=== PATIENT | male | born 1965 | race Caucasian/White ===

== ENCOUNTER 2021-07-04 18:40 | Inpatient (IN) | payer BC, SELFPAY ==
[~2021-07-04] VITALS: Ht 177.8 cm; Wt 127.7 kg
[2021-07-04 18:45] VITALS: BP_SYST 192
--- NOTE | 2021-07-04 18:45 | NUR ---
Patient to ER bed 2 to gown for evaluation. Side rails up. Report given to WILLIAM AMBRIZ.
--- NOTE | 2021-07-04 18:50 | NUR ---
ER at bedside examining patient.
--- NOTE | 2021-07-04 18:55 | NUR ---
PT PRESENTS BIB LACF C/O CP FROM . PT SEEKED TX YESTERDAY FOR SAME COMPLAINT AND LEFT BEFORE EVALUATION .PT RECEIVED NTG X 2 WITH RELIEF AND 324MG ASA.PT H/O DM W/O MEDS AND HTN.
--- NOTE | 2021-07-04 20:18 | NUR ---
Minimal report received on patient. Patient resting in bed; in no acute distress. 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 Patient reported chest pain upon intial arrival with radiation to his left hand. States it has "substantially subsided" since inital arrival, especially after second nitro was administered. Will continue to monitor.
[2021-07-04 20:21] LABS: BASOPHILS % (AUTO) 0.4 % (0.0-2.0); EOSINOPHILS # (AUTO) 0.1 K/uL (0.0-0.4); EOSINOPHILS % (AUTO) 0.7 % (0.0-4.0); HEMOGLOBIN 16.1 g/dL (14.0-18.0); LYMPHOCYTES # (AUTO) 1.7 K/uL (1.0-5.5); LYMPHOCYTES % (AUTO) 19.4 % (20.5-51.5); MEAN CORPUSCULAR HEMOGLOBIN 30 pg (27-31); MEAN CORPUSCULAR HGB CONC 34 % (32-36); MEAN CORPUSCULAR VOLUME 88 fL (79.0-98.0); MONOCYTES # (AUTO) 0.5 K/uL (0.0-1.0); MONOCYTES % (AUTO) 5.8 % (1.7-9.3); NEUTROPHILS # (AUTO) 6.6 K/uL (1.8-7.7); NEUTROPHILS % (AUTO) 73.7 % (40.0-70.0); PLATELET COUNT (AUTO) 282 K/uL (130-430); RED BLOOD CELL COUNT(AUTO) 5.34 MIL/uL (4.2-6.2); RED CELL DISTRIBUTION WIDTH 14.6 % (9.0-15.0)
[2021-07-04 20:38] LABS: CALCIUM 8.6 mg/dL (8.4-11.0); CREATININE 1.28 mg/dL (0.55-1.30); POTASSIUM 4.3 mmol/L (3.5-5.1)
[2021-07-04 20:43] LABS: ALBUMIN 3.9 g/dL (3.4-4.8); TOTAL BILIRUBIN 0.7 mg/dL (0.0-1.0)
--- NOTE | 2021-07-04 21:12 | NUR ---
Patient to be admitted. Currently resting in bed in no acute distress. Will continue to monitor.
--- NOTE | 2021-07-04 21:21 | NUR ---
Patient will be admitted to care of Denzel (Dr Cortez covering). Admitted to tele unit. Will go to room TBD. Belongings list completed. Complete and up to date summary report printed. SBAR report to be given at bedside with opportunity for questions.
[2021-07-04] MEDS ORDERED: LOSA100T3 PO (21:22)
[2021-07-04] MEDS ORDERED: AMLO5TAB4 PO (21:22)
--- NOTE | 2021-07-04 21:22 | NUR ---
Medication reconciliation completed with information provided by patient. Any prior medication reconciliation on file was reviewed and corrected.
[2021-07-04] MEDS: NACL 0.9% 1,000 ML IV SCH (21:24)
--- NOTE | 2021-07-04 21:25 | NUR ---
COVID swab collected at bedside and sent to lab
[2021-07-04] MEDS ORDERED: MORPHINE 2 MG/ML INJ. SYRINGE IVP PRN (21:30)
--- NOTE | 2021-07-04 21:37 | NUR ---
Final belongings list failed to save. Patient also has hat with him at bedside in addition to other clothing.
--- NOTE | 2021-07-04 21:51 | NUR ---
Call placed to Dr Cortez re Heparin admininstration; unable to admininster without aPTT result. Awaiting call back.
--- NOTE | 2021-07-04 22:44 | NUR ---
Still awaiting aPTT results for subcutaneous heparin administration. Will continue to monitor.
[2021-07-04] MEDS: HEPARIN SODIUM,PORCINE 5,000 UNITS/ML VIAL SUBCUT SCH (22:59)
--- NOTE | 2021-07-04 23:02 | NUR ---
Report given to Taylor RN who will assume care of patient
--- NOTE | 2021-07-04 23:07 | NUR ---
Provided Meal tray at bedside, Patient will NPO after midnight.
--- NOTE | 2021-07-05 00:51 | NUR ---
Patient will be admitted to care of Dr. Mg. Admitted to TELE unit. Will go to room 129A. Belongings list completed. Complete and up to date summary report printed. SBAR report to be given at bedside with opportunity for questions.
--- NOTE | 2021-07-05 01:05 | NUR ---
ADMISSION: The patient, RUBIA FONSECA, 55 y/o, M admitted by JU CAPPS MD,WITH THE DIAGNOSIS OF CHEST PAIN TO ROOM 129A
--- NOTE | 2021-07-05 01:20 | NUR ---
INITIAL NOTES: PT IS AWAKE , NOT IN ANY ACUTE DISTRESS; DENIED ANY CHEST PAIN , SOB AT THIS TIME , PT IS WATCHING ON HIS PHONE . VITALS ARE STABLE ; ASSESSMENT COMPLETED ; BED IN LOW AND LOCK POSITION, CALL BAGLEY IN REACH . ENCOURAGED PT TO CALL FOR ASSIST .TELEMONITOR SHOWS SR WITH MILD ST ELEVATION .
[2021-07-05 01:21] VITALS: BP_SYST 142
--- NOTE | 2021-07-05 06:09 | NUR ---
0245 : REPORT GIVEN TO UIR GARCIA RN FOR CONTINUATION OF CARE.PT IS COMFORTABLE ; SLEEPING , RESPIRATION IS EVEN AND NON LABORED .
[2021-07-05] MEDS ORDERED: ATORVASTATIN 20 MG TABLET PO SCH (09:00)
[2021-07-05] MEDS ORDERED: METOPROLOL SUCCINATE 50 MG TAB.SR.24H (TOPROL XL) PO SCH (09:00)
[2021-07-05] MEDS ORDERED: amLODIPine BESYLATE 5 MG TABLET PO SCH (09:00)
[2021-07-05] MEDS ORDERED: *LOVENOX 1MG/KG Q12H/PHARMACY XX ONE (09:00)
[2021-07-05] MEDS ORDERED: ASPIRIN 81 MG TAB.CHEW PO SCH (09:00)
[2021-07-05 09:01] VITALS: BP_SYST 156
[2021-07-05] MEDS: NACL 0.9% 1,000 ML IV SCH (09:07)
[2021-07-05] MEDS: HEPARIN SODIUM,PORCINE 5,000 UNITS/ML VIAL SUBCUT SCH (09:19)
--- NOTE | 2021-07-05 09:26 | NUR ---
SPOKE TO MENTALLY RETARDED TEACHER SPOKE TO BESSIE MENTALLY RETARDED TEACHER AND MADE AWARE THAT PATIENT NEEDS TO BE TRANSFER TO [facility] FOR ANGIOGRAM AND PARAMEDIC RN TIME IS 2;30PM TODAY. BESSIE SAID SHE WILL CALL [facility] TO ARRANGE TRANSFER.
--- NOTE | 2021-07-05 10:37 | NUR ---
JPAGED PAGED DR CH SPOKE WITH MARLEN AT EXCHANGE
--- NOTE | 2021-07-05 10:50 | NUR ---
NURSE NOTE Pt is resting in bed with mo s/s of distress. Ultrasound done by computer systems technician at bedside. Dr. Coto was at pt's bedside as well and notified that a critical lab value was called by Emmy from lab stating pt has a troponin level of 3.376. said he will place new orders and pt needs to be transferred to [facility] for angiogram. Pt is aware. All scheduled medications given at this time. Pt has no c/o. Denies any chest pain. Has no n/v. A&Ox4. No sob. Pt has no c/o. VSS. Bed in lowest posiiton and call light is within reach. Skin is intact. Will continue to monitor and pt is NPO.
[2021-07-05] MEDS ORDERED: ENOXAPARIN SODIUM 120 MG/0.8 ML SYRINGE SUBCUT ONE (11:00)
--- NOTE | 2021-07-05 11:42 | NUR ---
Order noted for transfer to [facility] for hearth cath. Per Pamella AMBRIZanimal humane agent supervisor in [facility], pt may transfer at 3pm to [facility]/Tele Unit. No particular bed at this time. Please call [phone] for report. [facility] [phone]. Addendum: 07/05/21 at 1146 by Paige Brown [facility] p/u at 3pm. Sx scheduled for 5pm.
--- NOTE | 2021-07-05 13:54 | NUR ---
NURSE NOTE Pt resting in bed watching videos on his cellphone. Denies any discomfort. VSS. Currently running on 100ml/hr NS. Consent signed for transfer. Gave report to Macy AMBRIZ at [facility] Tele unit.
[2021-07-05 14:05] VITALS: BP_SYST 122
[2021-07-05 14:26] VITALS: BP_SYST 126
[2021-07-05 15:29] LABS: CHOLESTEROL 185 mg/dL (<200); HDL CHOLESTEROL 31 mg/dL (>45); LDL CHOLESTEROL 129 mg/dL (<100); TRIGLYCERIDES 149 mg/dL (30-150)
[2021-07-05] MEDS ORDERED: ENOXAPARIN SODIUM 120 MG/0.8 ML SYRINGE SUBCUT SCH (21:00)
== END 2021-07-05 14:00 | disposition short-term general hospital (02) | DRG 281 ==
LOC: SED 18:40 → STU 21:17
PROVIDERS: ADMIT Internal Medicine Hospice and Palliative Medicine; ATTEND Internal Medicine Hospice and Palliative Medicine
DX: I21.4 Non-ST elevation (NSTEMI) myocardial infarction (principal); Z68.41 Body mass index [BMI] 40.0-44.9, adult; E11.65 Type 2 diabetes mellitus with hyperglycemia; E66.01 Morbid (severe) obesity due to excess calories; E78.5 Hyperlipidemia, unspecified; I10 Essential (primary) hypertension; Z20.822 Contact with and (suspected) exposure to COVID-19; Z82.49 Family history of ischemic heart disease and other diseases of the circulatory system; Z79.899 Other long term (current) drug therapy; Z85.828 Personal history of other malignant neoplasm of skin; Z87.891 Personal history of nicotine dependence; Z79.82 Long term (current) use of aspirin
CPT/HCPCS: 36415; 71045; 80053; 80061; 84484; 85025; 85730-TC; 93005; 93306; 99285; G0378; J1644; J1650